=== PATIENT | female | born 1945 | race Caucasian/White ===

== ENCOUNTER 2020-06-06 11:00 | Outpatient (RCR) | payer MEDICARE | END 2020-06-15 | LOC: PT 11:00 | PROVIDERS: ATTEND Specialist | DX: M19.011 Primary osteoarthritis, right shoulder (principal); M81.0 Age-related osteoporosis without current pathological fracture; M47.812 Spondylosis without myelopathy or radiculopathy, cervical region; M40.293 Other kyphosis, cervicothoracic region ==

== ENCOUNTER 2020-07-10 15:00 | Outpatient (RCR) | payer MEDICARE | END 2020-07-13 | LOC: PT 15:00 | PROVIDERS: ATTEND Specialist | DX: M19.011 Primary osteoarthritis, right shoulder (principal); M47.812 Spondylosis without myelopathy or radiculopathy, cervical region; M40.293 Other kyphosis, cervicothoracic region; M81.0 Age-related osteoporosis without current pathological fracture | CPT/HCPCS: 97139 ==

== ENCOUNTER 2020-07-16 15:00 | Outpatient (RCR) | payer MEDICARE | END 2020-08-13 | LOC: PT 15:00 | PROVIDERS: ATTEND Specialist | DX: M19.011 Primary osteoarthritis, right shoulder (principal); M47.812 Spondylosis without myelopathy or radiculopathy, cervical region; M40.293 Other kyphosis, cervicothoracic region; M81.0 Age-related osteoporosis without current pathological fracture ==